=== PATIENT | female | born 1995 | race Two or more races ===

== ENCOUNTER 2018-04-26 09:52 | Outpatient (CLI) | payer OTHER | END 2018-04-26 09:59 | disposition home or self-care (01) | LOC: SONOGRAMA 09:52 | DX: N91.4 Secondary oligomenorrhea (principal); N92.1 Excessive and frequent menstruation with irregular cycle ==

== ENCOUNTER 2018-07-12 11:37 | Outpatient (CLI) | payer OTHER | END 2018-07-12 11:55 | disposition home or self-care (01) | LOC: RAD 11:37 | DX: M54.2 Cervicalgia (principal) ==

== ENCOUNTER 2018-09-01 07:59 | Outpatient (CLI) | payer OTHER | END 2018-09-01 08:06 | disposition home or self-care (01) | LOC: LAB 07:59 | DX: Z00.00 Encounter for general adult medical examination without abnormal findings (principal); R53.1 Weakness; N91.4 Secondary oligomenorrhea; N92.1 Excessive and frequent menstruation with irregular cycle; E03.8 Other specified hypothyroidism; E11.9 Type 2 diabetes mellitus without complications ==

== ENCOUNTER 2018-11-25 16:55 | Emergency (ER) | payer OTHER ==
[~2018-11-25] VITALS: Ht 165.1 cm; Wt 117.9 kg
== END 2018-11-25 23:35 | disposition home or self-care (01) ==
LOC: ER 16:55
DX: K29.70 Gastritis, unspecified, without bleeding (principal); R53.81 Other malaise; R50.9 Fever, unspecified

== ENCOUNTER 2019-01-03 10:24 | Outpatient (CLI) | payer OTHER | END 2019-01-03 10:29 | disposition home or self-care (01) | LOC: SONOGRAMA 10:24 | DX: N92.1 Excessive and frequent menstruation with irregular cycle (principal) ==

== ENCOUNTER 2019-05-29 15:10 | Outpatient (CLI) | payer OTHER | END 2019-05-29 15:22 | disposition home or self-care (01) | LOC: RAD 15:10 | DX: S39.012A Strain of muscle, fascia and tendon of lower back, initial encounter (principal) ==

== ENCOUNTER 2019-10-01 17:17 | Outpatient (CLI) | payer OTHER | END 2019-10-01 18:09 | disposition home or self-care (01) | LOC: LAB 17:17 | DX: J11.1 Influenza due to unidentified influenza virus with other respiratory manifestations (principal) ==

== ENCOUNTER 2019-10-26 13:52 | Outpatient (CLI) | payer OTHER | END 2019-10-26 15:00 | disposition home or self-care (01) | LOC: LAB 13:52 | DX: J11.1 Influenza due to unidentified influenza virus with other respiratory manifestations (principal) ==

== ENCOUNTER 2020-02-01 23:02 | Emergency (ER) | payer OTHER ==
[~2020-02-01] VITALS: Ht 165.1 cm; Wt 118.4 kg
[2020-02-02] MEDS ORDERED: KETO10TA2 PO (00:45)
== END 2020-02-02 00:56 ==
LOC: ER 23:02
DX: S90.122A Contusion of left lesser toe(s) without damage to nail, initial encounter (principal); W22.8XXA Striking against or struck by other objects, initial encounter; Y93.01 Activity, walking, marching and hiking; Y92.89 Other specified places as the place of occurrence of the external cause; Y99.8 Other external cause status

== ENCOUNTER 2020-05-12 06:49 | Outpatient (CLI) | payer OTHER ==
[~2020-05-12 06:49] MED LIST: KETO10TA2 PO
== END 2020-05-12 07:02 | disposition home or self-care (01) ==
LOC: LAB 06:49
PROVIDERS: ATTEND Obstetrics & Gynecology
DX: E28.39 Other primary ovarian failure (principal); Z11.3 Encounter for screening for infections with a predominantly sexual mode of transmission; Z11.4 Encounter for screening for human immunodeficiency virus [HIV]; N95.1 Menopausal and female climacteric states; E04.1 Nontoxic single thyroid nodule; E55.9 Vitamin D deficiency, unspecified; E78.00 Pure hypercholesterolemia, unspecified

== ENCOUNTER 2021-07-13 10:13 | Day surgery (SDC) | payer OTHER ==
[2021-07-13] MEDS ORDERED: MEGACE (11:16)
== END 2021-07-13 21:50 | disposition home or self-care (01) ==
LOC: CIR.AMB 10:13
PROVIDERS: ATTEND Specialist
DX: C54.1 Malignant neoplasm of endometrium (principal); Z20.822 Contact with and (suspected) exposure to COVID-19